=== PATIENT | male | born 1955 | race Caucasian/White ===

== ENCOUNTER 2025-01-20 08:30 | Outpatient (CLI) | payer MEDICARE, SELFPAY | END 2025-01-20 08:31 | disposition home or self-care (01) | LOC: NFLDREF 01-22 00:04 | PROVIDERS: PCP Emergency Medicine; Referring Provider Emergency Medicine; Visit Provider Emergency Medicine | DX: E78.2 Mixed hyperlipidemia (principal); I10 Essential (primary) hypertension | CPT/HCPCS: 80053; 80061 ==

== ENCOUNTER 2025-01-25 08:58 | Outpatient (CLI) | payer MEDICARE, SELFPAY | END 2025-01-25 08:59 | disposition home or self-care (01) | LOC: NFLDREF 18:13 | PROVIDERS: PCP Emergency Medicine; Referring Provider Emergency Medicine; Visit Provider Emergency Medicine | DX: R19.7 Diarrhea, unspecified (principal) | CPT/HCPCS: 87493 ==

== ENCOUNTER 2025-03-10 10:24 | Outpatient (CLI) | payer MEDICARE, SELFPAY | END 2025-03-10 10:25 | disposition home or self-care (01) | LOC: NPINS 10:24 | PROVIDERS: PCP Emergency Medicine; Visit Provider Urology | DX: R97.20 Elevated prostate specific antigen [PSA] (principal) | CPT/HCPCS: 84153 ==

== ENCOUNTER 2025-04-11 10:10 | Outpatient (CLI) | payer MEDICARE, SELFPAY ==
[2025-04-14 03:42] LABS: Prostate Specific Antigen Free 1.1 ng/mL; Prostate Specific Antigen%Free 15 %; Prostate Specific AntigenTotal 7.4 ng/mL (0.0-4.0)
== END 2025-04-11 10:11 | disposition home or self-care (01) ==
LOC: NPINS 10:11
PROVIDERS: PCP Emergency Medicine; Visit Provider Student in an Organized Health Care Education/Training Program
DX: R97.20 Elevated prostate specific antigen [PSA] (principal)
CPT/HCPCS: 84153; 84154

== ENCOUNTER 2025-10-27 12:10 | Outpatient (CLI) | payer MEDICARE, SELFPAY | END 2025-10-27 12:11 | disposition home or self-care (01) | PROVIDERS: PCP Family Medicine; Visit Provider Family Medicine | DX: M35.3 Polymyalgia rheumatica (principal); M79.10 Myalgia, unspecified site; R00.2 Palpitations; R20.2 Paresthesia of skin; R53.83 Other fatigue | CPT/HCPCS: 84443; 86140; 86618 ==